=== PATIENT | female | born 1985 | race Caucasian/White ===

== ENCOUNTER → 2023-07-02 | Outpatient (CLI) | payer BC ==
[~2023-07-02] MED LIST: IOHEXOL-350 50ML VIAL IV ONE
== END | disposition home or self-care (01) ==
LOC: RAH 08:44
PROVIDERS: ATTEND Obstetrics & Gynecology
DX: N92.6 Irregular menstruation, unspecified (principal)
CPT/HCPCS: 74740; 84703; 36415; 58340; Q9967

== ENCOUNTER → 2025-04-11 | Outpatient (CLI) | payer BC ==
--- NOTE | 2025-04-12 06:08 | HMCIMG ---
EXAMINATION: COMPLETE TRANSVAGINAL ULTRASOUND OF PELVIS. CLINICAL HISTORY: Irregular menses. COMPARISON: None provided. TECHNIQUE: Multiple real-time grayscale images of the pelvis were obtained. In addition, color Doppler is medically necessary to perform to assess for vascularity and blood flow. FINDINGS: The uterus is anteverted, normal in caliber and measures 8.3 x 3.7 x 4.7 cm in the craniocaudal, AP, and transverse dimensions respectively. The endometrium measures approximately 0.9 cm. There are few Nabothian cysts in the cervix. The right ovary is normal in caliber and measures 2.5 x 1.1 x 1.8 cm. The left ovary is normal in caliber and measures 2.7 x 2.1 x 2.8 cm. There is a follicular cyst that measures 1.8 x 1.4 x 1.8 cm. Vascularity of the ovaries is normal. There is no free fluid in the cul-de-sac. IMPRESSION: Nabothian cysts in the cervix. Left ovarian follicular cyst. /[place]
== END | disposition home or self-care (01) ==
LOC: RAH 10:40
PROVIDERS: ATTEND Obstetrics & Gynecology
DX: N83.02 Follicular cyst of left ovary (principal); N92.6 Irregular menstruation, unspecified; N88.8 Other specified noninflammatory disorders of cervix uteri
CPT/HCPCS: 76830